=== PATIENT | female | born 1985 | race Caucasian/White ===

== ENCOUNTER 2016-11-11 05:48 | Day surgery (SDC) | payer OTHER ==
[~2016-11-11] VITALS: Ht 168.9 cm; Wt 86.1 kg
[~2016-11-11 05:48] MED LIST: BIRTH CONTROL PILLS PO; IBUP-1221 PO
[2016-11-11 06:40] VITALS: BP 113/78
[2016-11-11] MEDS ORDERED: MIDAZOLAM 1 MG/ML, 2ML ONE (06:51)
[2016-11-11] MEDS ORDERED: FENTANYL PF 100 MCG/2ML ONE ×3 (06:51→08:53)
[2016-11-11] MEDS: LACTATED RINGERS 1,000 ML IV SCH ×2 (06:56→09:26)
[2016-11-11] MEDS ORDERED: LIDOCAINE/PF 1%, 30ML ONE (07:02)
[2016-11-11] MEDS ORDERED: EPINEPHRINE 1 MG/ML, 1ML ONE (07:02)
[2016-11-11 07:06] LABS: HCG UR OBC PASS
[2016-11-11] MEDS ORDERED: NEOSTIGMINE 1 MG/ML, 10ML ONE ×2 (07:27)
[2016-11-11] MEDS ORDERED: ONDANSETRON 2MG/ML, 2ML ONE ×3 (07:27→09:00)
[2016-11-11] MEDS ORDERED: KETOROLAC 30 MG/1 ML ONE ×2 (07:27)
[2016-11-11] MEDS ORDERED: DEXAMETHASONE 4 MG/ML, 1ML ONE ×2 (07:27)
[2016-11-11] MEDS ORDERED: PROPOFOL 10 MG/ML, 20ML ONE ×2 (07:27)
[2016-11-11] MEDS ORDERED: ROCURONIUM 10 MG/ML ONE ×2 (07:27)
[2016-11-11] MEDS ORDERED: GLYCOPYRROLATE 0.2MG/1ML, 5ML ONE ×2 (07:27)
[2016-11-11] MEDS ORDERED: MEPERIDINE/PF 25MG/0.5ML IVPush PRN (07:30)
[2016-11-11] MEDS ORDERED: ACETAMINOPHEN 325 MG TABLET PO PRN (07:30)
[2016-11-11] MEDS ORDERED: ONDANSETRON 2MG/ML, 2ML IVPush PRN (07:30)
[2016-11-11] MEDS ORDERED: OXYcodone 5 MG/5 ML ORAL.SOL UDC PO PRN (07:30)
[2016-11-11] MEDS ORDERED: PROMETHAZINE 25 MG/ML, 1ML IV PRN (07:30)
[2016-11-11] MEDS: FENTANYL PF 100 MCG/2ML IV PRN ×2 (08:55→09:10)
[2016-11-11] MEDS ORDERED: HYDROmorphone 1 MG/ML, 1ML ONE (09:19)
[2016-11-11] MEDS: HYDROmorphone 1 MG/ML, 1ML IV PRN ×2 (09:20→09:30)
[2016-11-11] MEDS ORDERED: PROMETHAZINE 25 MG SUPP PR PRN (11:30)
== END 2016-11-11 14:00 ==
LOC: OUT 05:48
PROVIDERS: ATTEND Obstetrics & Gynecology Gynecology
DX: D27.1 Benign neoplasm of left ovary (principal); Z88.0 Allergy status to penicillin
CPT/HCPCS: 58662; 81025; 88305; J0171; J1100; J1170; J1885; J2250; J2405; J2704; J2710; J3010; J3490; J7120